=== PATIENT | male | born 1955 | race African-American/Black ===

== ENCOUNTER 2016-07-02 09:23 | Emergency (ER) | payer OTHER ==
[~2016-07-02] VITALS: Ht 177.8 cm; Wt 150.0 kg
[~2016-07-02 09:23] MED LIST: ASPI325T PO; EMPA1TAB PO; FURO20 PO; KCL10C PO; LISI-360 PO
[2016-07-02 09:25] VITALS: BP 181/81; PULSE 70; RESP 20; TEMP 97.7; O2SAT 97
[2016-07-02] MEDS ORDERED: CYCL1TAB29 PO (09:48)
[2016-07-02] MEDS ORDERED: FURO20TA PO (09:48)
[2016-07-02] MEDS ORDERED: KETO10 PO (09:48)
[2016-07-02] MEDS ORDERED: LISI-515 PO (09:48)
[2016-07-02] MEDS ORDERED: HYDR-3533 PO (10:19)
--- NOTE | 2016-07-02 10:20 | PD ---
HPI Chief Complaint: Back/ Neck Pain or Injury Time Seen by Provider: 10:19 Travel History International Travel<30 days: No Contact w/Intl Traveler<30days: No Traveled to known affect area: No History of Present Illness HPI 60-year-old male with a history of hypertension presents to the emergency department for evaluation of back pain for 2 weeks. Patient denies any injury trauma to his back. States that he has spasming in his lower back and a sharp pain in his right upper back radiating down his right arm. States that he has had this happen once in the past as well. States that he saw his PCP Dr. Person 5 days ago and was prescribed ketorolac and Flexeril. States that the Flexeril has helped the spasms in his lower back but has not helped his upper back pain. Pain is aggravated with movement. Denies any alleviating factors. Denies any fever, chills, nausea, vomiting, numbness or tingling, weakness, saddle anesthesia, bowel or bladder incontinence. No other complaints. PFSH Past Medical History Asthma: No Blood Disorders: No Heart Rhythm Problems: Yes (04/05/15 afib rvr) Cancer: No Cardiovascular Problems: Yes High Cholesterol: Yes Chest Pain: Yes Congestive Heart Failure: Yes (questionable) COPD: No Diabetes: No ("borderline" does not check sugar at home or take insulin) Endocrine: No Genitourinary: No Hepatitis: No Hiatal Hernia: No Hypertension: Yes Immune Disorder: No Musculoskeletal: No Neurologic: No Psychiatric: No Reproductive: No Respiratory: Yes Sleep Apnea: Yes (wears cpap at night) Thyroid Disease: No Past Surgical History Abdominal Surgery: Yes (HERNIA REPAIR SATURDAY) Body Medical Devices: NONE Joint Replacement: No Pacemaker: No Social History Alcohol Use: Yes (OCC) Tobacco Use: No Substance Use: No Allergies-Medications (Allergen,Severity, Reaction): Coded Allergies: No Known Allergies (Verified , 07/02/16) Reported Meds & Prescriptions Reported Meds & Active Scripts Active Lortab (Hydrocodone-Acetaminophen) 5-325 Mg Tab 1 Tab PO Q6H PRN Reported Ketorolac (Ketorolac Tromethamine) 10 Mg Tab 10 Mg PO Q6HR PRN Flexeril (Cyclobenzaprine HCl) 10 Mg Tab 10 Mg PO TID Lisinopril 20 Mg Tab 10 Mg PO DAILY Furosemide 20 Mg Tab 20 Mg PO DAILY Review of Systems Except as stated in HPI: all other systems reviewed are Neg Physical Exam Narrative GENERAL: Well-nourished and well-developed pleasant patient in no acute distress who is nontoxic appearing. SKIN: Warm and dry. HEAD: Normocephalic and atraumatic. EYES: No injection, drainage, or hyphema noted. PERRLA. EOMI. ENT: No nasal drainage noted. Oropharynx is clear. NECK: Supple and the trachea is midline. CARDIOVASCULAR: Regular rate and rhythm. RESPIRATORY: Breath sounds are equal bilaterally with no accessory muscle use, wheezing, rhonchi, or crackles. MUSCULOSKELETAL: No obvious deformities, swelling, cyanosis, or ecchymosis is present throughout the upper and lower extremities. Patient has full range of motion without any signs of neurovascular compromise. Strength 5/5 upper and lower extremities equal bilaterally. BACK: Mild tenderness to palpation of bilateral lumbar paraspinal muscles. Mild tenderness to palpation of right thoracic paraspinal muscles. No obvious deformities, bony point tenderness, or crepitus noted throughout the thoracic and lumbar vertebrae. NEUROLOGICAL: Awake, alert, and oriented. Normal speech and gait. Cranial nerves are grossly intact. Data Data Last Documented VS Vital Signs Date Time Temp Pulse Resp B/P Pulse Ox O2 Delivery O2 Flow Rate FiO2 07/02/16 09:25 97.7 70 20 181/81 97 Room Air MDM Medical Decision Making Medical Screen Exam Complete: Yes Emergency Medical Condition: Yes Differential Diagnosis Muscle strain versus muscle spasm versus discogenic pain versus radiculopathy Narrative Course 60-year-old male presents to the emergency department for evaluation of lower back pain and upper back pain for 2 weeks. Patient is afebrile, vital signs are stable. No traumatic injury. No bony point tenderness. I don't feel there is any emergent imaging indicated at this time. Patient already saw his PCP and was prescribed NSAIDs and muscle relaxers which improved his low back spasms but not his upper back pain. We'll prescribe him a short course of Lortab. He is instructed follow-up with his PCP in office. Patient verbalizes understanding and agreement with treatment plan. Diagnosis Primary Impression: Thoracic back pain Qualified Code: M54.6 - Acute right-sided thoracic back pain Additional Impression: Spasm of lumbar paraspinous muscle Referrals: Eduardo Person MD Patient Instructions: Back Pain (ED), General Instructions Additional Instructions: Apply ice or heat to help alleviate symptoms Take medication as prescribed with food and a full glass of water. Do not take Lortab with alcohol or while driving. Follow-up with your Primary Care Physician. Return to the ED for any acute worsening of symptoms. Med/Other Pt SpecificInfo: Prescription(s) given Scripts Hydrocodone-Acetaminophen (Lortab)5-325 Mg Tab1 Tab PO Q6H PRN (PAIN) #15 TAB Ref 0 Prov:Nando Lao MD 07/02/16 Disposition: 01 DISCHARGE HOME Condition: Stable Carolina Cronin Jul 02, 2016 10:20
== END 2016-07-02 10:35 | disposition home or self-care (01) ==
LOC: NEPB 09:23
DX: M54.6 Pain in thoracic spine (principal); I48.91 Unspecified atrial fibrillation; I10 Essential (primary) hypertension
CPT/HCPCS: 99283